=== PATIENT | female | born 1980 | race Caucasian/White ===

== ENCOUNTER 2020-10-07 00:38 | Emergency (ER) | payer OTHER ==
[~2020-10-07] VITALS: Ht 157.5 cm; Wt 81.7 kg
[2020-10-07 01:21] LABS: ABSOLUTE NEUTROPHILS 3.3 thou/uL (1.4-8.2); BASOPHILS 1.2 % (0.0-2.0); EOSINOPHILS 4.5 % (0.0-3.0); HEMOGLOBIN 12.7 gm/dL (12.0-15.0); LYMPHOCYTES 36.1 % (24.0-44.0); MCH 28.6 pg (26.0-34.0); MCHC 32.6 g/dL (28.0-37.0); MCV 87.8 fL (80.0-100.0); MONOCYTES 8.6 % (1.0-8.0); PLATELET COUNT 251 thou/uL (150-400); POLYS 49.6 % (36.0-66.0); RBC 4.44 mil/uL (4.20-5.00); RDW 15.3 % (10.5-14.5); WBC 6.7 thou/uL (4.0-11.0)
[2020-10-07 01:23] LABS: CALCIUM 9.2 mg/dL (8.5-10.1); CREATININE 0.7 mg/dL (0.6-1.0); POTASSIUM 3.7 mmol/L (3.5-5.1)
[2020-10-07] MEDS ORDERED: NORCO 5-325 TA1 EAC2 PO (02:19)
[2020-10-07 02:33] VITALS: BP 135/46
== END 2020-10-07 03:10 | disposition home or self-care (01) ==
LOC: ER 00:38
PROVIDERS: Emergency Medicine
DX: S52.502A Unspecified fracture of the lower end of left radius, initial encounter for closed fracture (principal); S52.612A Displaced fracture of left ulna styloid process, initial encounter for closed fracture; M25.552 Pain in left hip; W01.0XXA Fall on same level from slipping, tripping and stumbling without subsequent striking against object, initial encounter; Y93.89 Activity, other specified; Y92.89 Other specified places as the place of occurrence of the external cause; Y99.8 Other external cause status